=== PATIENT | male | born 1950 | race Caucasian/White ===

== ENCOUNTER 2017-08-13 17:46 | Inpatient (IN) | payer OTHER, MEDICARE ==
[2017-08-13] MEDS: methylPREDNISolone INJ 125 MG/2 ML VIAL (J2930) IV (18:02)
[2017-08-13] MEDS: LORazepam 2 MG/ML VIAL (J2060) IV (18:03)
[2017-08-13] MEDS: IPRATROPIUM 0.5MG/ALBUTEROL 2.5MG INH SOL UD 3ML (DUONEB)(J7620) NEB (18:18)
[2017-08-13 18:25] LABS: ABG BASE EXCESS -1.2 (-2.0-2.0); ABG HCO3 22.3 MEQ/L (22.0-26.0); ABG PARTIAL PRESSURE CO2 34.1 mmHg (35.0-45.0); ABG PARTIAL PRESSURE O2 96.7 mmHg (75.0-100.0); ABG STANDARD HCO3 23.5 MEQ/L (22.0-26.0); ABG TOTAL CO2 23.3 MEQ/L (23.0-31.0); ABG pH (ARTERIAL) 7.433 UNITS (7.350-7.450)
[2017-08-13 18:31] LABS: BASO % 0.4 % (0.0-1.0); IMMATURE GRANULOCYTE % 0.4 % (0-0); LYMPH # 1.2 10^3/uL (1.5-4.5); LYMPH % 14.6 % (24.0-44.0); MEAN CORPUSCULAR HEMOGLOBIN 30.2 pg (27.0-33.0); MEAN CORPUSCULAR HGB CONC 33.4 g/dl (32.0-36.5); MEAN CORPUSCULAR VOLUME 90.3 fl (80.0-96.0); MONO # 1.3 10^3/uL (0.0-0.8); MONO % 15.7 % (0.0-5.0); NEUTROPHILS # 5.9 10^3/uL (1.8-7.7); NEUTROPHILS % 68.9 % (36.0-66.0); PLATELET COUNT, AUTOMATED 234 10^3/uL (150-450); RED CELL DISTRIBUTION WIDTH 12.9 % (11.5-14.5); WHITE BLOOD COUNT 8.5 10^3/uL (4.0-10.0)
[2017-08-13 18:51] LABS: INR 0.94
[2017-08-13 18:54] LABS: LACTIC ACID SEPSIS PROTOCOL 1.9 MMOL/L (0.4-2.0)
[2017-08-13 18:55] LABS: ANION GAP 9 MEQ/L (8-16); CALCIUM LEVEL 8.4 MG/DL (8.8-10.2); CARBON DIOXIDE LEVEL 25 MEQ/L (21-32); CHLORIDE LEVEL 102 MEQ/L (98-107); CREATININE FOR GFR 1.15 MG/DL (0.70-1.30); GLOMERULAR FILTRATION RATE > 60.0 (>49); GLUCOSE, FASTING 95 MG/DL (80-110); POTASSIUM SERUM 4.3 MEQ/L (3.5-5.1); SODIUM LEVEL 136 MEQ/L (136-145)
[2017-08-13 18:58] LABS: BLOOD UREA NITROGEN 17 MG/DL (7-18)
[2017-08-13 19:00] LABS: ALKALINE PHOSPHATASE 85 U/L (45-117); ALT/SGPT 28 U/L (12-78); AST/SGOT 24 U/L (7-37); BILIRUBIN,DIRECT 0.1 MG/DL (0.0-0.2); BILIRUBIN,TOTAL 0.5 MG/DL (0.2-1.0)
[2017-08-13] MEDS ORDERED: ISOVUE-370 76% 100ML VIAL (Q9967) As Ordered (19:32)
[2017-08-13] MEDS: AZITHROMYCIN 250 MG TAB PO (21:00)
[2017-08-13] MEDS ORDERED: ONDANSETRON 4MG/2ML VIAL (J2405) IV (21:00)
[2017-08-13] MEDS: guaiFENesin ER 600 MG TAB PO (22:26)
[2017-08-13] MEDS: CEFTRIAXONE SOD 2 GM in APPROPRIATE DILUENT 1 EA IV (22:57)
[2017-08-14] MEDS: ALBUTEROL SULFATE 2.5 MG/0.5 ML INH NEB SOLN INH (02:24)
[2017-08-14] MEDS: methylPREDNISolone INJ 125 MG/2 ML VIAL (J2930) IV ×3 (02:55→17:34)
[2017-08-14 05:04] LABS: IONIZED CALCIUM 4.3 MG/DL (4.5-5.3)
[2017-08-14 05:11] LABS: MEAN CORPUSCULAR HEMOGLOBIN 30.5 pg (27.0-33.0); MEAN CORPUSCULAR HGB CONC 33.6 g/dl (32.0-36.5); MEAN CORPUSCULAR VOLUME 90.9 fl (80.0-96.0); PLATELET COUNT, AUTOMATED 224 10^3/uL (150-450); RED CELL DISTRIBUTION WIDTH 12.8 % (11.5-14.5); WHITE BLOOD COUNT 4.7 10^3/uL (4.0-10.0)
[2017-08-14 05:21] LABS: ANION GAP 8 MEQ/L (8-16); BLOOD UREA NITROGEN 23 MG/DL (7-18); CALCIUM LEVEL 8.3 MG/DL (8.8-10.2); CARBON DIOXIDE LEVEL 26 MEQ/L (21-32); CHLORIDE LEVEL 102 MEQ/L (98-107); CREATININE FOR GFR 1.21 MG/DL (0.70-1.30); GLOMERULAR FILTRATION RATE > 60.0 (>49); GLUCOSE, FASTING 175 MG/DL (80-110); POTASSIUM SERUM 4.4 MEQ/L (3.5-5.1); SODIUM LEVEL 136 MEQ/L (136-145)
[2017-08-14] MEDS: IPRATROPIUM 0.5MG/ALBUTEROL 2.5MG INH SOL UD 3ML (DUONEB)(J7620) NEB ×4 (06:39→20:22)
[2017-08-14] MEDS: guaiFENesin ER 600 MG TAB PO ×2 (08:39→21:41)
[2017-08-14] MEDS: ENOXAPARIN 40 MG/0.4 ML SYRINGE (J1650) SC (08:40)
[2017-08-14] MEDS: ACETAMINOPHEN TAB 650MG DOSE (2X325MG) PO ×3 (12:34→21:41)
[2017-08-14] MEDS: ADVAIR HFA 230/21MCG INHALER INH ×2 (13:51→21:00)
[2017-08-14] MEDS: AZITHROMYCIN 250 MG TAB PO (21:41)
[2017-08-14] MEDS: BENZONATATE 100 MG CAP PO (22:30)
[2017-08-15] MEDS: methylPREDNISolone INJ 125 MG/2 ML VIAL (J2930) IV ×3 (03:31→17:31)
[2017-08-15] MEDS: ACETAMINOPHEN TAB 650MG DOSE (2X325MG) PO ×3 (03:31→17:31)
[2017-08-15 04:56] LABS: MEAN CORPUSCULAR HEMOGLOBIN 30.3 pg (27.0-33.0); MEAN CORPUSCULAR HGB CONC 33.2 g/dl (32.0-36.5); MEAN CORPUSCULAR VOLUME 91.3 fl (80.0-96.0); PLATELET COUNT, AUTOMATED 224 10^3/uL (150-450); RED CELL DISTRIBUTION WIDTH 12.8 % (11.5-14.5); WHITE BLOOD COUNT 11.3 10^3/uL (4.0-10.0)
[2017-08-15 05:13] LABS: ANION GAP 5 MEQ/L (8-16); BLOOD UREA NITROGEN 25 MG/DL (7-18); CALCIUM LEVEL 8.4 MG/DL (8.8-10.2); CARBON DIOXIDE LEVEL 28 MEQ/L (21-32); CHLORIDE LEVEL 105 MEQ/L (98-107); CREATININE FOR GFR 0.95 MG/DL (0.70-1.30); GLOMERULAR FILTRATION RATE > 60.0 (>49); GLUCOSE, FASTING 145 MG/DL (80-110); POTASSIUM SERUM 4.2 MEQ/L (3.5-5.1); SODIUM LEVEL 138 MEQ/L (136-145)
[2017-08-15] MEDS: IPRATROPIUM 0.5MG/ALBUTEROL 2.5MG INH SOL UD 3ML (DUONEB)(J7620) NEB ×4 (07:23→20:00)
[2017-08-15] MEDS: ADVAIR HFA 230/21MCG INHALER INH ×2 (07:23→20:14)
[2017-08-15] MEDS: guaiFENesin ER 600 MG TAB PO ×2 (08:06→20:16)
[2017-08-15] MEDS: ENOXAPARIN 40 MG/0.4 ML SYRINGE (J1650) SC (08:07)
[2017-08-15] MEDS: BENZONATATE 100 MG CAP PO (09:43)
[2017-08-15] MEDS: ALPRAZolam 0.25 MG TAB PO ×2 (13:55→20:16)
[2017-08-15] MEDS: TIOTROPIUM INHALER/CAPSULE (SPIRIVA) INH (15:12)
[2017-08-15] MEDS: AZITHROMYCIN 250 MG TAB PO (20:16)
[2017-08-16] MEDS: IPRATROPIUM 0.5MG/ALBUTEROL 2.5MG INH SOL UD 3ML (DUONEB)(J7620) NEB ×6 (02:19→20:00)
[2017-08-16] MEDS: methylPREDNISolone INJ 125 MG/2 ML VIAL (J2930) IV ×3 (02:47→17:36)
[2017-08-16 04:14] LABS: MEAN CORPUSCULAR HEMOGLOBIN 30.7 pg (27.0-33.0); MEAN CORPUSCULAR HGB CONC 33.9 g/dl (32.0-36.5); MEAN CORPUSCULAR VOLUME 90.6 fl (80.0-96.0); PLATELET COUNT, AUTOMATED 230 10^3/uL (150-450)
[2017-08-16 04:32] LABS: ANION GAP 7 MEQ/L (8-16); BLOOD UREA NITROGEN 25 MG/DL (7-18); CALCIUM LEVEL 8.4 MG/DL (8.8-10.2); CARBON DIOXIDE LEVEL 27 MEQ/L (21-32); CHLORIDE LEVEL 102 MEQ/L (98-107); CREATININE FOR GFR 0.96 MG/DL (0.70-1.30); GLOMERULAR FILTRATION RATE > 60.0 (>49); GLUCOSE, FASTING 131 MG/DL (80-110); POTASSIUM SERUM 4.1 MEQ/L (3.5-5.1); SODIUM LEVEL 136 MEQ/L (136-145)
[2017-08-16] MEDS: TIOTROPIUM INHALER/CAPSULE (SPIRIVA) INH (07:23)
[2017-08-16] MEDS: ADVAIR HFA 230/21MCG INHALER INH ×2 (07:23→20:35)
[2017-08-16] MEDS: ENOXAPARIN 40 MG/0.4 ML SYRINGE (J1650) SC (08:32)
[2017-08-16] MEDS: guaiFENesin ER 600 MG TAB PO ×2 (08:32→21:24)
[2017-08-16] MEDS: ALPRAZolam 0.25 MG TAB PO ×2 (08:32→21:23)
[2017-08-16] MEDS: BENZONATATE 100 MG CAP PO (17:36)
[2017-08-16] MEDS: AZITHROMYCIN 250 MG TAB PO (21:22)
[2017-08-17] MEDS: methylPREDNISolone INJ 125 MG/2 ML VIAL (J2930) IV ×3 (03:10→17:53)
[2017-08-17] MEDS: BENZONATATE 100 MG CAP PO ×3 (03:32→22:53)
[2017-08-17 05:13] LABS: MEAN CORPUSCULAR HEMOGLOBIN 30.4 pg (27.0-33.0); MEAN CORPUSCULAR HGB CONC 33.5 g/dl (32.0-36.5); MEAN CORPUSCULAR VOLUME 90.7 fl (80.0-96.0); PLATELET COUNT, AUTOMATED 242 10^3/uL (150-450); RED CELL DISTRIBUTION WIDTH 12.7 % (11.5-14.5); WHITE BLOOD COUNT 12.3 10^3/uL (4.0-10.0)
[2017-08-17 05:33] LABS: ANION GAP 4 MEQ/L (8-16); BLOOD UREA NITROGEN 23 MG/DL (7-18); CALCIUM LEVEL 8.4 MG/DL (8.8-10.2); CARBON DIOXIDE LEVEL 30 MEQ/L (21-32); CHLORIDE LEVEL 104 MEQ/L (98-107); CREATININE FOR GFR 0.82 MG/DL (0.70-1.30); GLOMERULAR FILTRATION RATE > 60.0 (>49); GLUCOSE, FASTING 127 MG/DL (80-110); POTASSIUM SERUM 4.5 MEQ/L (3.5-5.1); SODIUM LEVEL 138 MEQ/L (136-145)
[2017-08-17] MEDS: ADVAIR HFA 230/21MCG INHALER INH ×2 (07:33→21:18)
[2017-08-17] MEDS: IPRATROPIUM 0.5MG/ALBUTEROL 2.5MG INH SOL UD 3ML (DUONEB)(J7620) NEB ×4 (07:35→21:18)
[2017-08-17] MEDS: TIOTROPIUM INHALER/CAPSULE (SPIRIVA) INH (07:35)
[2017-08-17] MEDS: ENOXAPARIN 40 MG/0.4 ML SYRINGE (J1650) SC (09:12)
[2017-08-17] MEDS: guaiFENesin ER 600 MG TAB PO ×2 (09:12→20:18)
[2017-08-17] MEDS: ALPRAZolam 0.25 MG TAB PO (11:41)
[2017-08-17] MEDS: DOXYCYCLINE HYCLATE 100 MG in D5W MINI-BAG PLUS 100 ML IV (16:52)
[2017-08-18] MEDS: ALPRAZolam 0.25 MG TAB PO ×3 (00:32→20:09)
[2017-08-18] MEDS: DOXYCYCLINE HYCLATE 100 MG in D5W MINI-BAG PLUS 100 ML IV ×2 (04:21→15:32)
[2017-08-18 05:42] LABS: MEAN CORPUSCULAR HEMOGLOBIN 30.4 pg (27.0-33.0); MEAN CORPUSCULAR HGB CONC 33.3 g/dl (32.0-36.5); MEAN CORPUSCULAR VOLUME 91.3 fl (80.0-96.0); PLATELET COUNT, AUTOMATED 232 10^3/uL (150-450); RED CELL DISTRIBUTION WIDTH 12.7 % (11.5-14.5); WHITE BLOOD COUNT 11.7 10^3/uL (4.0-10.0)
[2017-08-18 06:02] LABS: ANION GAP 6 MEQ/L (8-16); BLOOD UREA NITROGEN 25 MG/DL (7-18); CARBON DIOXIDE LEVEL 28 MEQ/L (21-32); CHLORIDE LEVEL 103 MEQ/L (98-107); CREATININE FOR GFR 0.93 MG/DL (0.70-1.30); GLOMERULAR FILTRATION RATE > 60.0 (>49); GLUCOSE, FASTING 128 MG/DL (80-110); POTASSIUM SERUM 4.2 MEQ/L (3.5-5.1); SODIUM LEVEL 137 MEQ/L (136-145)
[2017-08-18] MEDS: methylPREDNISolone INJ 40 MG/1 ML VIAL (J2920) IV ×2 (06:08→18:44)
[2017-08-18] MEDS: IPRATROPIUM 0.5MG/ALBUTEROL 2.5MG INH SOL UD 3ML (DUONEB)(J7620) NEB ×4 (07:55→20:43)
[2017-08-18] MEDS: TIOTROPIUM INHALER/CAPSULE (SPIRIVA) INH (07:55)
[2017-08-18] MEDS: ADVAIR HFA 230/21MCG INHALER INH ×2 (07:55→20:43)
[2017-08-18] MEDS: BENZONATATE 100 MG CAP PO ×2 (08:19→20:09)
[2017-08-18] MEDS: ENOXAPARIN 40 MG/0.4 ML SYRINGE (J1650) SC (08:19)
[2017-08-18] MEDS: guaiFENesin ER 600 MG TAB PO ×2 (08:19→20:09)
[2017-08-19] MEDS: IPRATROPIUM 0.5MG/ALBUTEROL 2.5MG INH SOL UD 3ML (DUONEB)(J7620) NEB ×5 (01:41→19:55)
[2017-08-19] MEDS: DOXYCYCLINE HYCLATE 100 MG in D5W MINI-BAG PLUS 100 ML IV ×2 (03:27→15:01)
[2017-08-19] MEDS: methylPREDNISolone INJ 40 MG/1 ML VIAL (J2920) IV (05:40)
[2017-08-19 07:11] LABS: MEAN CORPUSCULAR HEMOGLOBIN 30.1 pg (27.0-33.0); MEAN CORPUSCULAR HGB CONC 33.8 g/dl (32.0-36.5); PLATELET COUNT, AUTOMATED 247 10^3/uL (150-450); RED CELL DISTRIBUTION WIDTH 12.3 % (11.5-14.5); WHITE BLOOD COUNT 14.6 10^3/uL (4.0-10.0)
[2017-08-19] MEDS: TIOTROPIUM INHALER/CAPSULE (SPIRIVA) INH (07:20)
[2017-08-19] MEDS: ADVAIR HFA 230/21MCG INHALER INH ×2 (07:20→19:57)
[2017-08-19 07:26] LABS: ANION GAP 7 MEQ/L (8-16); BLOOD UREA NITROGEN 21 MG/DL (7-18); CARBON DIOXIDE LEVEL 30 MEQ/L (21-32); CHLORIDE LEVEL 103 MEQ/L (98-107); CREATININE FOR GFR 0.83 MG/DL (0.70-1.30); GLOMERULAR FILTRATION RATE > 60.0 (>49); GLUCOSE, FASTING 106 MG/DL (80-110); POTASSIUM SERUM 4.3 MEQ/L (3.5-5.1); SODIUM LEVEL 140 MEQ/L (136-145)
[2017-08-19] MEDS: BENZONATATE 100 MG CAP PO ×2 (08:45→19:32)
[2017-08-19] MEDS: ALPRAZolam 0.25 MG TAB PO ×2 (08:45→19:32)
[2017-08-19] MEDS: predniSONE 20 MG TAB PO (08:46)
[2017-08-19] MEDS: guaiFENesin ER 600 MG TAB PO ×2 (08:46→20:46)
[2017-08-19] MEDS: ENOXAPARIN 40 MG/0.4 ML SYRINGE (J1650) SC (08:46)
[2017-08-20] MEDS: DOXYCYCLINE HYCLATE 100 MG in D5W MINI-BAG PLUS 100 ML IV (03:09)
[2017-08-20] MEDS: IPRATROPIUM 0.5MG/ALBUTEROL 2.5MG INH SOL UD 3ML (DUONEB)(J7620) NEB ×2 (03:20→07:51)
[2017-08-20 07:27] LABS: MEAN CORPUSCULAR HEMOGLOBIN 30.4 pg (27.0-33.0); MEAN CORPUSCULAR VOLUME 89.4 fl (80.0-96.0); PLATELET COUNT, AUTOMATED 292 10^3/uL (150-450); RED CELL DISTRIBUTION WIDTH 12.6 % (11.5-14.5); WHITE BLOOD COUNT 18.9 10^3/uL (4.0-10.0)
[2017-08-20 07:40] LABS: ANION GAP 6 MEQ/L (8-16); BLOOD UREA NITROGEN 21 MG/DL (7-18); CALCIUM LEVEL 8.6 MG/DL (8.8-10.2); CARBON DIOXIDE LEVEL 31 MEQ/L (21-32); CHLORIDE LEVEL 101 MEQ/L (98-107); CREATININE FOR GFR 0.96 MG/DL (0.70-1.30); GLOMERULAR FILTRATION RATE > 60.0 (>49); GLUCOSE, FASTING 113 MG/DL (80-110); POTASSIUM SERUM 3.6 MEQ/L (3.5-5.1); SODIUM LEVEL 138 MEQ/L (136-145)
[2017-08-20] MEDS: ADVAIR HFA 230/21MCG INHALER INH (07:50)
[2017-08-20] MEDS: TIOTROPIUM INHALER/CAPSULE (SPIRIVA) INH (07:50)
[2017-08-20] MEDS: ALPRAZolam 0.25 MG TAB PO (08:36)
[2017-08-20] MEDS: BENZONATATE 100 MG CAP PO (08:36)
[2017-08-20] MEDS: ENOXAPARIN 40 MG/0.4 ML SYRINGE (J1650) SC (08:36)
[2017-08-20] MEDS: predniSONE 20 MG TAB PO (08:36)
[2017-08-20] MEDS: guaiFENesin ER 600 MG TAB PO (08:36)
== END 2017-08-20 11:48 | disposition home or self-care (01) | DRG 192 ==
LOC: M MS4PR 08-18 21:20 → M ED 17:46 → M ED INP 20:57 → M PCU 22:08
DX: J44.1 Chronic obstructive pulmonary disease with (acute) exacerbation (principal); J11.1 Influenza due to unidentified influenza virus with other respiratory manifestations; E78.00 Pure hypercholesterolemia, unspecified; F41.9 Anxiety disorder, unspecified; E83.51 Hypocalcemia; M50.30 Other cervical disc degeneration, unspecified cervical region; I10 Essential (primary) hypertension; R09.02 Hypoxemia; Z98.1 Arthrodesis status; Z87.891 Personal history of nicotine dependence; Z79.899 Other long term (current) drug therapy; B95.61 Methicillin susceptible Staphylococcus aureus infection as the cause of diseases classified elsewhere

== ENCOUNTER → 2018-12-05 | Outpatient (CLI) | payer OTHER ==
[~2018-12-05] MED LIST: ALEV220T26 PO; COMBAER6 INH; CYCL5TAB5 PO; DOCU10CA PO; DOXY-350 PO; HYDR-3713 PO; MUCI1TAB18 PO; MUCI600T37 PO; NAPR220C PO; PERC5TAB12 PO; PRED10TA2 PO; SYMB16INH INH; SYMB80INH INH; TIOT18INH INH; ZOCO20TA PO
--- NOTE | 2018-12-06 06:50 | ECHO ---
DATE OF PROCEDURE: 12/05/2018 DATE OF : 1950 AGE: 68 REFERRING PROVIDER: Dr. Charan Miller PATIENT LOCATION: Outpatient REASON FOR THE ECHOCARDIOGRAM: Heart disease, shortness of breath. 2D MEASUREMENTS: IVS: 0.92 cm LV: 3.5 cm LVPW: 0.97 cm LA: 2.7 cm Aorta: 3.0 cm IVC: 1.2 cm DOPPLER MEASUREMENTS: Peak velocity across the aortic valve: 0.99 m/s Peak velocity across the LVOT: 0.75 m/s Mitral E: 0.85 Mitral A: 1.1 Ratio: 0.8 2D COMMENTS: 1. Normal left ventricular size, wall thickness, and normal global left ventricular systolic function. The estimated global left ventricular systolic ejection fraction is 60-65%. 2. Normal left atrium. Normal right atrium and right ventricle. 3. The atrial septum appeared to be normal without evidence of defect or shunt. 4. Normal aortic root. 5. Trace pericardial effusion noted anteriorly versus a fat pad. There is no evidence of cardiac tamponade. 6. Mildly calcified aortic valve with normal leaflet excursion. Mildly calcified mitral annulus with normal anterior mitral valve leaflet motion. Normal tricuspid valve. The pulmonic valve was not well visualized. The proximal pulmonary artery branches were not visualized. 7. The inferior vena cava was normal in size, central venous pressure is most likely normal. DOPPLER: Only trace mitral regurgitation detected. Abnormal relaxation pattern was noted across the mitral valve leaflets as well as the mitral valve annulus consistent with delayed relaxation. IMPRESSION: 1. Normal global left ventricular systolic function. There are some features of left ventricular diastolic dysfunction manifested by impaired relaxation. 2. Aortic valve sclerosis without stenosis or aortic regurgitation. 3. Mitral annulus calcification with trace mitral regurgitation. 4. Trace pericardial effusion versus a fat pad was noted anteriorly. No evidence of cardiac tamponade. Not mentioned above, there were some features consistent with right ventricular hypertrophy. Right ventricular systolic function was normal.
== END ==
LOC: M CARPUL 09:50
PROVIDERS: ATTEND Internal Medicine
DX: I25.10 Atherosclerotic heart disease of native coronary artery without angina pectoris (principal)

== ENCOUNTER 2020-07-17 15:19 | Inpatient (IN) | payer OTHER, MEDICARE ==
[~2020-07-17] VITALS: Ht 165.1 cm; Wt 74.7 kg
[2020-07-17] MEDS ORDERED: ROSU40TA4 PO ×2 (15:40→23:35)
[2020-07-17] MEDS ORDERED: ACET-683 PO (15:40)
[2020-07-17] MEDS ORDERED: FERR325T16 PO (15:43)
[2020-07-17] MEDS ORDERED: IPRA0.00 NEB (15:43)
[2020-07-17] MEDS ORDERED: MULTCAP PO (15:43)
[2020-07-17] MEDS ORDERED: DALI1TAB2 PO ×2 (15:43→23:35)
[2020-07-17] MEDS ORDERED: BUSP5TA PO ×2 (15:43→23:35)
--- NOTE | 2020-07-17 16:13 | REP ---
INDICATION: Syncope/near-syncope COMPARISON: 08/16/2017 TECHNIQUE: Portable AP view of the chest FINDINGS: The mediastinum and cardiac silhouette are stable and within normal limits for portable technique. The lung roman demonstrate chronic appearing changes without acute consolidation, effusion, or pneumothorax. Skeletal structures are intact. IMPRESSION: No acute cardiopulmonary process appreciated. Stable chronic changes. <Electronically signed by Ronald Benoit > 07/17/20 [id number]
[2020-07-17 16:32] LABS: BASO % 0.5 % (0.0-1.0); EOS % 0.3 % (0.0-3.0); HEMATOCRIT 41.6 % (42.0-52.0); HEMOGLOBIN 13.7 g/dl (13.5-17.5); LYMPH # 1.3 10^3/uL (1.5-5.0); LYMPH % 14.9 % (24.0-44.0); MEAN CORPUSCULAR HEMOGLOBIN 30.7 pg (27.0-33.0); MEAN CORPUSCULAR HGB CONC 32.9 g/dl (32.0-36.5); MEAN CORPUSCULAR VOLUME 93.3 fl (80.0-96.0); MONO # 0.8 10^3/uL (0.0-0.8); MONO % 8.7 % (0.0-5.0); NEUTROPHILS # 6.7 10^3/uL (1.5-8.5); NEUTROPHILS % 75.3 % (36.0-66.0); PLATELET COUNT, AUTOMATED 258 10^3/uL (150-450); RED BLOOD COUNT 4.46 10^6/uL (4.30-6.10); WHITE BLOOD COUNT 8.9 10^3/uL (4.0-10.0)
[2020-07-17 17:18] LABS: BLOOD UREA NITROGEN 13 MG/DL (7-18); C REACTIVE PROTEIN QUANTITATIV 0.49 MG/DL (0.00-0.30); CALCIUM LEVEL 9.3 MG/DL (8.8-10.2); CARBON DIOXIDE LEVEL 26 MEQ/L (21-32); CHLORIDE LEVEL 105 MEQ/L (98-107); CK-MB VALUE MASS 1.4 NG/ML (<3.6); CPK CREATINE PHOSPHOKINASE 112 U/L (39-308); CREATININE FOR GFR 1.13 MG/DL (0.70-1.30); GLOMERULAR FILTRATION RATE > 60.0 (>49); GLUCOSE, FASTING 97 MG/DL (70-100); MB/CK RELATIVE INDEX 1.25 (< OR =4); POTASSIUM SERUM 4.4 MEQ/L (3.5-5.1); SODIUM LEVEL 138 MEQ/L (136-145); THYROID STIMULATING HORMONE 0.675 uIU/ML (0.358-3.740); TROPONIN I < 0.02 NG/ML (< 0.10)
[2020-07-17 19:57] LABS: CK-MB VALUE MASS 1.5 NG/ML (<3.6); CPK CREATINE PHOSPHOKINASE 157 U/L (39-308); MB/CK RELATIVE INDEX 0.96 (< OR =4); TROPONIN I < 0.02 NG/ML (< 0.10)
[2020-07-17] MEDS ORDERED: PROHANCE 279.3MG/ML 15ML VIAL As Ordered ONE (20:45)
--- NOTE | 2020-07-17 21:12 | REPVR ---
PROCEDURE INFORMATION: Exam: MR Lumbar Spine Without and With Contrast. Exam date and time: 07/17/2020 9:02 PM Age: 69 years old Clinical indication: Pain; Other: ? Discitis TECHNIQUE: Imaging protocol: Multiplanar magnetic resonance images of the lumbar spine without and with intravenous contrast. Contrast material: PROHANCE; Contrast volume: 14 ml; Contrast route: INTRAVENOUS (IV); COMPARISON: No relevant prior studies available. FINDINGS: Vertebrae: T1 weighted images demonstrate mottled decreased signal throughout the vertebrae, findings which can be seen in association with chronic anemia or other myeloproliferative abnormality. This should be correlated with clinical evaluation. Spinal cord: Normal signal. No cord compression. L1-L2: Disc space narrowing at L1-L2 with slight increased signal demonstrated on T1 weighted images, disc desiccation with decreased signal on T2 weighted imaging and minimal enhancement on post gadolinium imaging. Findings are consistent with but not diagnostic of discitis. L2-L3: No significant disc disease. No significant spinal canal stenosis. No neural foraminal stenosis. L3-L4: Mild annular bulge at L3-L4 without central or lateral spinal stenosis. L4-L5: Bilateral facet joint arthropathy at L4-L5. No central or lateral spinal stenosis. L5-S1: Posterior annular bulging. Bilateral facet joint arthropathy L5-S1 without central or lateral spinal stenosis. Soft tissues: Unremarkable. IMPRESSION: 1. T1 weighted images demonstrate mottled decreased signal throughout the vertebrae, findings which can be seen in association with chronic anemia or other myeloproliferative abnormality. This should be correlated with clinical evaluation. 2. Possible discitis at L1-L2 as described above. 3. Mild degenerative changes as described above. Electronically signed by: Librado Pond On 07/17/2020 21:12:21 PM
[2020-07-17] MEDS ORDERED: MOM 30ML SUSPENSION UDC PO PRN (23:00)
[2020-07-17] MEDS ORDERED: MAALOX 30 ML SUSP *UDC PO PRN (23:00)
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
[2020-07-17] MEDS ORDERED: CYCL-707 PO (23:35)
[2020-07-17] MEDS ORDERED: FERR32TA PO (23:35)
[2020-07-17] MEDS ORDERED: GUAI400T9 PO (23:35)
[2020-07-17] MEDS ORDERED: IPRA0.00 INH (23:35)
[2020-07-17] MEDS ORDERED: VITMTA PO (23:35)
[2020-07-17] MEDS ORDERED: PROAAER10 INH (23:35)
[2020-07-17] MEDS ORDERED: SYMB16INH INH (23:35)
[2020-07-17] MEDS ORDERED: TRAM50TA2 PO (23:35)
[2020-07-17] MEDS ORDERED: SPIR12.9 INH (23:35)
[2020-07-17] MEDS ORDERED: [UNRECOGNIZED DRUG - CODE] EXT (23:35)
[2020-07-18] MEDS ORDERED: ALBUTEROL 90 MCG/ACT 8GM HFA INHALER INH PRN (00:45)
[2020-07-18] MEDS: IPRATROPIUM 0.5MG/ALBUTEROL 2.5MG INH SOL UD 3ML (DUONEB) INH PRN ×5 (01:44→23:14)
[2020-07-18 02:00] VITALS: BP 161/93
[2020-07-18 02:02] VITALS: BP 142/76
[2020-07-18 02:04] VITALS: BP 129/79
[2020-07-18 06:00] VITALS: BP 157/84
[2020-07-18 07:13] LABS: HEMATOCRIT 44.5 % (42.0-52.0); HEMOGLOBIN 14.3 g/dl (13.5-17.5); MEAN CORPUSCULAR HEMOGLOBIN 30.4 pg (27.0-33.0); MEAN CORPUSCULAR HGB CONC 32.1 g/dl (32.0-36.5); MEAN CORPUSCULAR VOLUME 94.7 fl (80.0-96.0); PLATELET COUNT, AUTOMATED 271 10^3/uL (150-450); WHITE BLOOD COUNT 16.4 10^3/uL (4.0-10.0)
[2020-07-18 07:29] LABS: BLOOD UREA NITROGEN 14 MG/DL (7-18); CARBON DIOXIDE LEVEL 25 MEQ/L (21-32); CHLORIDE LEVEL 105 MEQ/L (98-107); CREATININE FOR GFR 1.13 MG/DL (0.70-1.30); GLOMERULAR FILTRATION RATE > 60.0 (>49); GLUCOSE, FASTING 88 MG/DL (70-100); POTASSIUM SERUM 4.2 MEQ/L (3.5-5.1); SODIUM LEVEL 140 MEQ/L (136-145)
--- NOTE | 2020-07-18 07:34 | ECGEPIP ---
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
--- NOTE | 2020-07-18 07:38 | ECGEPIP ---
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
[2020-07-18] MEDS: SYMBICORT 160/4.5MCG INHALER 6GM INH SCH ×2 (08:00→19:24)
[2020-07-18] MEDS: TIOTROPIUM INHALER/CAPSULE (SPIRIVA) INH SCH (08:00)
[2020-07-18] MEDS ORDERED: cefTRIAXone SOD 1 GM in D5W MINI-BAG PLUS 50 ML IV SCH (08:00)
[2020-07-18] MEDS ORDERED: VANCOMYCIN HCL 1,000 MG, VIAL MATE ADAPTER 1 EACH in D5W 250 ML IV SCH (08:00)
[2020-07-18 08:31] LABS: ERYTHROCYTE SEDIMENTATION RATE 28 mm/hr (0-20)
[2020-07-18] MEDS: FERROUS GLUCONATE 324 MG TAB PO SCH ×2 (09:43→17:31)
[2020-07-18] MEDS: MULTIVITAMINS/MINERALS THERAP 1 TAB PO SCH ×2 (09:43→17:31)
[2020-07-18] MEDS: cefTRIAXone SOD 2 GM in D5W MINI-BAG PLUS 50 ML IV SCH (09:44)
[2020-07-18] MEDS ORDERED: VANCOMYCIN HCL 1,000 MG, VIAL MATE ADAPTER 1 EACH in D5W 250 ML IV ONE (11:00)
[2020-07-18] MEDS: CYCLOBENZAPRINE 10MG TABLET PO PRN ×2 (11:47→20:05)
--- NOTE | 2020-07-18 11:47 | IPNPDOC ---
Text Note Date of Service The patient was seen on 07/18/20. NOTE Subjective: Patient continues to complain on the lower lumbar pain associated with bilateral leg weakness. Patient denied any urinary retention or fecal incontinence Objective: GENERAL APPEARANCE: NAD HEENT: no scleral icterus, no JVD, EOMI CARDIOVASCULAR: S1S2 LUNGS: CTA ABDOMEN: soft & not tender w palpitation MUSCULOSKELETAL: Tenderness over L1-L2, L4-L5 INTEGUMENT: no generalized palor NEUROLOGICAL: cranial nerve function from 2-12 intact intact, follows commands, speech not dysarthric Assessment and plan Patient is a 69-year-old with a history of COPD, O2-dependent respiratory failure, pre-DM, DLP,, and chronic back pain who presented with complaints of feeling weak and dizzy; MRI of the lumbar spine showed possible discitis. Sepsis Patient has tachycardia, he developed leukocytosis in the morning of 16.4 with increased sedimentation rate of 28 MRI showed Possible discitis at L1-L2 I started vancomycin IV and ceftriaxone IV empirically Await blood culture Appreciate/agree with infectious diseases consult Possible discitis Patient denied any infectious problem process recently Continue antibiotics for now Pain management COPD Oxygen dependent on 2 L Continue inhalers Hyperlipidemia Continue statin VS,Fishbone, I+O VS, Fishbone, I+O Laboratory Tests 07/17/20 16:02 07/18/20 06:41 Vital Signs Date Time Temp Pulse Resp B/P (MAP) Pulse Ox O2 Delivery O2 Flow Rate FiO2 07/18/20 06:00 98.9 110 20 157/84 (108) 95 Nasal Cannula 2.0 I&O- Last 24 Hours up to 6 AM 07/18/20 06:00 Output Total 650 ml Balance -650 ml MARIA LUISA KEARNS DO Jul 18, 2020 11:47
[2020-07-18] MEDS ORDERED: VANCOMYCIN HCL 500 MG in D5W MINI-BAG PLUS 100 ML IV ONE (13:00)
[2020-07-18 14:00] VITALS: BP 130/79
[2020-07-18] MEDS: busPIRone 5 MG TAB PO PRN ×2 (16:10→20:05)
[2020-07-18] MEDS: ROFLUMILAST 500 MCG PO SCH (16:10)
[2020-07-18] MEDS: ROSUVASTATIN 10 MG TAB (CRESTOR) PO SCH (17:31)
[2020-07-18] MEDS: VANCOMYCIN HCL 750 MG, VIAL MATE ADAPTER 1 EACH in D5W 250 ML IV SCH (17:32)
[2020-07-18] MEDS: ACETAMINOPHEN TAB 650MG DOSE (2X325MG) PO PRN ×2 (17:47→23:24)
[2020-07-18] MEDS: traMADol 50 MG TAB PO PRN (20:05)
[2020-07-18 22:37] VITALS: BP 132/80
[2020-07-19 02:00] VITALS: BP 127/72
[2020-07-19] MEDS: IPRATROPIUM 0.5MG/ALBUTEROL 2.5MG INH SOL UD 3ML (DUONEB) INH PRN ×5 (03:51→23:44)
[2020-07-19] MEDS: ACETAMINOPHEN TAB 650MG DOSE (2X325MG) PO PRN ×2 (04:08→21:24)
[2020-07-19] MEDS: VANCOMYCIN HCL 750 MG, VIAL MATE ADAPTER 1 EACH in D5W 250 ML IV SCH (05:09)
[2020-07-19 06:00] VITALS: BP 125/72
[2020-07-19 07:10] LABS: BASO % 0.4 % (0.0-1.0); EOS # 0.1 10^3/uL (0.0-0.5); EOS % 0.5 % (0.0-3.0); HEMATOCRIT 40.6 % (42.0-52.0); HEMOGLOBIN 12.9 g/dl (13.5-17.5); LYMPH # 1.4 10^3/uL (1.5-5.0); LYMPH % 13.8 % (24.0-44.0); MEAN CORPUSCULAR HEMOGLOBIN 30.1 pg (27.0-33.0); MEAN CORPUSCULAR HGB CONC 31.8 g/dl (32.0-36.5); MEAN CORPUSCULAR VOLUME 94.9 fl (80.0-96.0); MONO # 1.3 10^3/uL (0.0-0.8); MONO % 12.3 % (0.0-5.0); NEUTROPHILS # 7.5 10^3/uL (1.5-8.5); NEUTROPHILS % 72.6 % (36.0-66.0); PLATELET COUNT, AUTOMATED 236 10^3/uL (150-450); RED BLOOD COUNT 4.28 10^6/uL (4.30-6.10); WHITE BLOOD COUNT 10.3 10^3/uL (4.0-10.0)
[2020-07-19] MEDS: TIOTROPIUM INHALER/CAPSULE (SPIRIVA) INH SCH (07:12)
[2020-07-19] MEDS: SYMBICORT 160/4.5MCG INHALER 6GM INH SCH ×2 (07:13→20:11)
[2020-07-19 07:38] LABS: ALBUMIN 3.8 GM/DL (3.2-5.2); ALT/SGPT 29 U/L (12-78); BILIRUBIN,TOTAL 0.5 MG/DL (0.2-1.0); BLOOD UREA NITROGEN 14 MG/DL (7-18); CALCIUM LEVEL 9.2 MG/DL (8.8-10.2); CARBON DIOXIDE LEVEL 30 MEQ/L (21-32); CHLORIDE LEVEL 102 MEQ/L (98-107); CREATININE FOR GFR 1.12 MG/DL (0.70-1.30); GLOMERULAR FILTRATION RATE > 60.0 (>49); GLUCOSE, FASTING 138 MG/DL (70-100); MAGNESIUM LEVEL 2.1 MG/DL (1.8-2.4); POTASSIUM SERUM 3.9 MEQ/L (3.5-5.1); SODIUM LEVEL 137 MEQ/L (136-145); TOTAL PROTEIN 7.2 GM/DL (6.4-8.2)
[2020-07-19] MEDS: busPIRone 5 MG TAB PO PRN ×2 (08:56→21:23)
[2020-07-19] MEDS: MULTIVITAMINS/MINERALS THERAP 1 TAB PO SCH ×2 (08:56→17:58)
[2020-07-19] MEDS: CYCLOBENZAPRINE 10MG TABLET PO PRN ×2 (08:56→21:23)
[2020-07-19] MEDS: FERROUS GLUCONATE 324 MG TAB PO SCH ×2 (08:56→17:58)
[2020-07-19] MEDS: ROFLUMILAST 500 MCG PO SCH (08:57)
[2020-07-19] MEDS: cefTRIAXone SOD 2 GM in D5W MINI-BAG PLUS 50 ML IV SCH (08:58)
[2020-07-19 10:00] VITALS: BP 123/68
--- NOTE | 2020-07-19 11:31 | IPNPDOC ---
Text Note Date of Service The patient was seen on 07/19/20. NOTE Subjective: Patient stated that he feels much better today. Back pain signif icantly subsided Objective: GENERAL APPEARANCE: NAD HEENT: no scleral icterus, no JVD, EOMI CARDIOVASCULAR: S1S2 LUNGS: CTA ABDOMEN: soft & not tender w palpitation MUSCULOSKELETAL: Mild Tenderness over L1-L2, L4-L5 INTEGUMENT: no generalized palor NEUROLOGICAL: cranial nerve function from 2-12 intact intact, follows commands, speech not dysarthric Assessment and plan Patient is a 69-year-old with a history of COPD, O2-dependent respiratory failure, pre-DM, DLP,, and chronic back pain who presented with complaints of feeling weak and dizzy; MRI of the lumbar spine showed possible discitis. Sepsis Patient has tachycardia, he developed leukocytosis in the morning of 16.4 with increased sedimentation rate of 28 MRI showed Possible discitis at L1-L2 I started vancomycin IV and ceftriaxone IV empirically blood culture negative Appreciate/agree with infectious diseases consult. No coverage today Possible discitis Patient denied any infectious problem process recently No obvious source of infection Sedimentation rate of 28 Continue antibiotics for now Pain management COPD Oxygen dependent on 2 L Continue inhalers Hyperlipidemia Continue statin VS,Fishbone, I+O VS, Fishbone, I+O Laboratory Tests 07/19/20 06:17 Vital Signs Date Time Temp Pulse Resp B/P (MAP) Pulse Ox O2 Delivery O2 Flow Rate FiO2 07/19/20 10:00 98.0 103 18 123/68 (86) 93 Nasal Cannula 2.0 I&O- Last 24 Hours up to 6 AM0 07/19/20 06:00 Intake Total 1630 ml Output Total 1500 ml Balance 130 ml MARIA LUISA KEARNS DO Jul 19, 2020 11:31
[2020-07-19] MEDS: traMADol 50 MG TAB PO PRN (12:11)
[2020-07-19 14:00] VITALS: BP 124/81
[2020-07-19] MEDS: ROSUVASTATIN 10 MG TAB (CRESTOR) PO SCH (17:57)
[2020-07-19 18:00] VITALS: BP 123/85
[2020-07-19 22:00] VITALS: BP 129/77
[2020-07-20 02:00] VITALS: BP 121/71
[2020-07-20] MEDS: IPRATROPIUM 0.5MG/ALBUTEROL 2.5MG INH SOL UD 3ML (DUONEB) INH PRN ×6 (03:46→23:51)
[2020-07-20 06:00] VITALS: BP 112/63
[2020-07-20] MEDS: traMADol 50 MG TAB PO PRN ×2 (06:27→17:03)
[2020-07-20 07:04] LABS: BASO % 0.4 % (0.0-1.0); EOS # 0.1 10^3/uL (0.0-0.5); EOS % 1.2 % (0.0-3.0); HEMATOCRIT 39.3 % (42.0-52.0); HEMOGLOBIN 12.7 g/dl (13.5-17.5); LYMPH # 1.5 10^3/uL (1.5-5.0); LYMPH % 14.7 % (24.0-44.0); MEAN CORPUSCULAR HGB CONC 32.3 g/dl (32.0-36.5); MEAN CORPUSCULAR VOLUME 92.7 fl (80.0-96.0); MONO # 1.1 10^3/uL (0.0-0.8); MONO % 11.1 % (0.0-5.0); NEUTROPHILS # 7.4 10^3/uL (1.5-8.5); NEUTROPHILS % 72.3 % (36.0-66.0); PLATELET COUNT, AUTOMATED 249 10^3/uL (150-450); RED BLOOD COUNT 4.24 10^6/uL (4.30-6.10); WHITE BLOOD COUNT 10.2 10^3/uL (4.0-10.0)
[2020-07-20 07:19] LABS: ALBUMIN 3.4 GM/DL (3.2-5.2); ALT/SGPT 29 U/L (12-78); BILIRUBIN,TOTAL 0.3 MG/DL (0.2-1.0); BLOOD UREA NITROGEN 13 MG/DL (7-18); CALCIUM LEVEL 8.8 MG/DL (8.8-10.2); CARBON DIOXIDE LEVEL 26 MEQ/L (21-32); CHLORIDE LEVEL 106 MEQ/L (98-107); CREATININE FOR GFR 1.09 MG/DL (0.70-1.30); GLOMERULAR FILTRATION RATE > 60.0 (>49); GLUCOSE, FASTING 123 MG/DL (70-100); MAGNESIUM LEVEL 2.1 MG/DL (1.8-2.4); POTASSIUM SERUM 3.8 MEQ/L (3.5-5.1); SODIUM LEVEL 139 MEQ/L (136-145); TOTAL PROTEIN 6.8 GM/DL (6.4-8.2)
[2020-07-20] MEDS: TIOTROPIUM INHALER/CAPSULE (SPIRIVA) INH SCH (07:19)
[2020-07-20] MEDS: SYMBICORT 160/4.5MCG INHALER 6GM INH SCH ×2 (07:20→19:45)
[2020-07-20] MEDS: ROFLUMILAST 500 MCG PO SCH (08:27)
[2020-07-20] MEDS: FERROUS GLUCONATE 324 MG TAB PO SCH ×2 (08:27→17:04)
[2020-07-20] MEDS: CYCLOBENZAPRINE 10MG TABLET PO PRN ×2 (08:27→17:07)
[2020-07-20] MEDS: busPIRone 5 MG TAB PO PRN ×3 (08:27→20:17)
[2020-07-20] MEDS: MULTIVITAMINS/MINERALS THERAP 1 TAB PO SCH ×2 (08:27→17:04)
--- NOTE | 2020-07-20 09:53 | IPNPDOC ---
Text Note Date of Service The patient was seen on 07/20/20. NOTE Subjective: No any acute events overnight. Patient denies fever, chills, nausea, and, diarrhea or dysuria Objective: GENERAL APPEARANCE: NAD HEENT: no scleral icterus, no JVD, EOMI CARDIOVASCULAR: S1S2 LUNGS: CTA ABDOMEN: soft & not tender w palpitation MUSCULOSKELETAL: Mild Tenderness over L1-L2, L4-L5 INTEGUMENT: no generalized palor NEUROLOGICAL: cranial nerve function from 2-12 intact intact, follows commands, speech not dysarthric Assessment and plan Patient is a 69-year-old with a history of COPD, O2-dependent respiratory failure, pre-DM, DLP,, and chronic back pain who presented with complaints of feeling weak and dizzy; MRI of the lumbar spine showed possible discitis. Sepsis resolved Patient had tachycardia, he developed leukocytosis of 16.4 on 07/18 with increased sedimentation rate of 28 MRI showed possible discitis at L1-L2 I talked to Dr. Rivera, she recommended CT-guided biopsy of L1-L2 and DC antibiotics CT guided biopsy planned on Wednesday Possible discitis Patient denied any infectious process recently No obvious source of infection Sedimentation rate of 28 Pain management COPD Oxygen dependent on 2 L Continue inhalers Hyperlipidemia Continue statin Chronic back pain Secondary to arthritic changes Lower extremity weakness Most likely secondary to disc bulging in the lumbar area vs possible discitis VS,Lizzie, I+O VS, Lizzie, I+O Laboratory Tests 07/20/20 06:30 Vital Signs Date Time Temp Pulse Resp B/P (MAP) Pulse Ox O2 Delivery O2 Flow Rate FiO2 07/20/20 06:57 16 07/20/20 06:00 98.3 96 112/63 (79) 94 Nasal Cannula 2.0 l I&O- Last 24 Hours up to 6 AM 07/20/20 06:00 Intake Total 1130 ml Output Total 0 ml Balance 1130 ml MARIA LUISA KEARNS DO Jul 20, 2020 09:53
[2020-07-20 10:00] VITALS: BP 115/71
[2020-07-20] MEDS: ROSUVASTATIN 10 MG TAB (CRESTOR) PO SCH (17:04)
[2020-07-20] MEDS: guaiFENesin 200 MG TAB PO PRN (17:16)
[2020-07-20 18:00] VITALS: BP 123/75
[2020-07-20] MEDS: ACETAMINOPHEN TAB 650MG DOSE (2X325MG) PO PRN (20:19)
[2020-07-20 22:00] VITALS: BP 130/82
[2020-07-21 02:00] VITALS: BP 121/74
[2020-07-21] MEDS: IPRATROPIUM 0.5MG/ALBUTEROL 2.5MG INH SOL UD 3ML (DUONEB) INH PRN ×6 (03:26→23:19)
[2020-07-21 06:00] VITALS: BP 128/75
[2020-07-21 07:07] LABS: BASO # 0.1 10^3/uL (0.0-0.2); BASO % 0.6 % (0.0-1.0); EOS # 0.2 10^3/uL (0.0-0.5); EOS % 1.9 % (0.0-3.0); HEMATOCRIT 39.3 % (42.0-52.0); HEMOGLOBIN 12.5 g/dl (13.5-17.5); LYMPH # 1.7 10^3/uL (1.5-5.0); LYMPH % 20.9 % (24.0-44.0); MEAN CORPUSCULAR HEMOGLOBIN 30.3 pg (27.0-33.0); MEAN CORPUSCULAR HGB CONC 31.8 g/dl (32.0-36.5); MEAN CORPUSCULAR VOLUME 95.2 fl (80.0-96.0); MONO # 0.9 10^3/uL (0.0-0.8); MONO % 11.6 % (0.0-5.0); NEUTROPHILS # 5.2 10^3/uL (1.5-8.5); NEUTROPHILS % 64.8 % (36.0-66.0); PLATELET COUNT, AUTOMATED 239 10^3/uL (150-450); RED BLOOD COUNT 4.13 10^6/uL (4.30-6.10)
[2020-07-21] MEDS: SYMBICORT 160/4.5MCG INHALER 6GM INH SCH ×2 (07:16→20:25)
[2020-07-21] MEDS: TIOTROPIUM INHALER/CAPSULE (SPIRIVA) INH SCH (07:17)
[2020-07-21 07:39] LABS: ALBUMIN 3.3 GM/DL (3.2-5.2); ALT/SGPT 31 U/L (12-78); BILIRUBIN,TOTAL 0.2 MG/DL (0.2-1.0); BLOOD UREA NITROGEN 12 MG/DL (7-18); CALCIUM LEVEL 8.7 MG/DL (8.8-10.2); CARBON DIOXIDE LEVEL 29 MEQ/L (21-32); CHLORIDE LEVEL 108 MEQ/L (98-107); CREATININE FOR GFR 1.06 MG/DL (0.70-1.30); GLOMERULAR FILTRATION RATE > 60.0 (>49); GLUCOSE, FASTING 101 MG/DL (70-100); MAGNESIUM LEVEL 2.1 MG/DL (1.8-2.4); POTASSIUM SERUM 4.2 MEQ/L (3.5-5.1); SODIUM LEVEL 141 MEQ/L (136-145); TOTAL PROTEIN 6.5 GM/DL (6.4-8.2)
[2020-07-21] MEDS: CYCLOBENZAPRINE 10MG TABLET PO PRN ×2 (07:54→18:45)
[2020-07-21] MEDS: FERROUS GLUCONATE 324 MG TAB PO SCH ×2 (07:54→18:46)
[2020-07-21] MEDS: busPIRone 5 MG TAB PO PRN ×3 (07:54→21:51)
[2020-07-21] MEDS: guaiFENesin 200 MG TAB PO PRN ×2 (07:54→18:46)
[2020-07-21] MEDS: traMADol 50 MG TAB PO PRN ×2 (07:55→18:45)
[2020-07-21] MEDS: MULTIVITAMINS/MINERALS THERAP 1 TAB PO SCH ×2 (07:55→18:46)
[2020-07-21] MEDS: ROFLUMILAST 500 MCG PO SCH (07:55)
[2020-07-21 10:00] VITALS: BP 122/76
--- NOTE | 2020-07-21 10:24 | IPNPDOC ---
Text Note Date of Service The patient was seen on 07/21/20. NOTE Subjective: No any acute events overnight. Patient states that his back pain significantly subsided. Objective: GENERAL APPEARANCE: NAD HEENT: no scleral icterus, no JVD, EOMI CARDIOVASCULAR: S1S2 LUNGS: CTA ABDOMEN: soft & not tender w palpitation MUSCULOSKELETAL: Mild Tenderness over L1-L2, L4-L5 INTEGUMENT: no generalized palor NEUROLOGICAL: cranial nerve function from 2-12 intact intact, follows commands, speech not dysarthric Assessment and plan Patient is a 69-year-old with a history of COPD, O2-dependent respiratory failure, pre-DM, DLP,, and chronic back pain who presented with complaints of feeling weak and dizzy; MRI of the lumbar spine showed possible discitis. Sepsis resolved Patient had tachycardia, he developed leukocytosis of 16.4 on 07/18 with increased sedimentation rate of 28 MRI showed possible discitis at L1-L2 I talked to Dr. Rivera, she recommended CT-guided biopsy of L1-L2 and DC antibiotics CT guided biopsy planned on Wednesday procalcitonin negative Possible discitis Patient denied any infectious process recently No obvious source of infection Sedimentation rate of 28 Pain management COPD Oxygen dependent on 2 L Continue inhalers Hyperlipidemia Continue statin VS,Fishbone, I+O VS, Fishbone, I+O Laboratory Tests 07/21/20 06:54 Vital Signs Date Time Temp Pulse Resp B/P (MAP) Pulse Ox O2 Delivery O2 Flow Rate FiO2 07/21/20 10:00 97.7 105 20 122/76 (91) 97 Nasal Cannula 2.0 I&O- Last 24 Hours up to 6 AM 07/21/20 05:59 Intake Total 1440 ml Output Total 0 ml Balance 1440 ml MARIA LUISA KEARNS DO Jul 21, 2020 10:24
[2020-07-21 14:00] VITALS: BP 124/75
[2020-07-21] MEDS: ACETAMINOPHEN TAB 650MG DOSE (2X325MG) PO PRN (14:14)
[2020-07-21 18:00] VITALS: BP 128/76
[2020-07-21] MEDS: ROSUVASTATIN 10 MG TAB (CRESTOR) PO SCH (18:46)
[2020-07-21 22:00] VITALS: BP 144/82
[2020-07-22] MEDS: IPRATROPIUM 0.5MG/ALBUTEROL 2.5MG INH SOL UD 3ML (DUONEB) INH PRN ×2 (04:15→07:25)
[2020-07-22] MEDS: busPIRone 5 MG TAB PO PRN (04:32)
[2020-07-22 06:00] VITALS: BP 133/72
[2020-07-22 06:53] LABS: BASO % 0.5 % (0.0-1.0); EOS # 0.1 10^3/uL (0.0-0.5); EOS % 1.6 % (0.0-3.0); HEMATOCRIT 38.7 % (42.0-52.0); HEMOGLOBIN 12.2 g/dl (13.5-17.5); LYMPH # 1.7 10^3/uL (1.5-5.0); LYMPH % 22.4 % (24.0-44.0); MEAN CORPUSCULAR HEMOGLOBIN 29.8 pg (27.0-33.0); MEAN CORPUSCULAR HGB CONC 31.5 g/dl (32.0-36.5); MEAN CORPUSCULAR VOLUME 94.4 fl (80.0-96.0); MONO # 0.8 10^3/uL (0.0-0.8); MONO % 10.3 % (0.0-5.0); NEUTROPHILS # 4.8 10^3/uL (1.5-8.5); NEUTROPHILS % 64.8 % (36.0-66.0); PLATELET COUNT, AUTOMATED 247 10^3/uL (150-450); WHITE BLOOD COUNT 7.4 10^3/uL (4.0-10.0)
[2020-07-22 07:19] LABS: ALBUMIN 3.5 GM/DL (3.2-5.2); ALT/SGPT 37 U/L (12-78); BILIRUBIN,TOTAL 0.3 MG/DL (0.2-1.0); BLOOD UREA NITROGEN 14 MG/DL (7-18); CALCIUM LEVEL 8.7 MG/DL (8.8-10.2); CARBON DIOXIDE LEVEL 28 MEQ/L (21-32); CHLORIDE LEVEL 107 MEQ/L (98-107); CREATININE FOR GFR 1.08 MG/DL (0.70-1.30); GLOMERULAR FILTRATION RATE > 60.0 (>49); GLUCOSE, FASTING 104 MG/DL (70-100); MAGNESIUM LEVEL 1.9 MG/DL (1.8-2.4); SODIUM LEVEL 139 MEQ/L (136-145); TOTAL PROTEIN 6.8 GM/DL (6.4-8.2)
[2020-07-22] MEDS: SYMBICORT 160/4.5MCG INHALER 6GM INH SCH (07:25)
[2020-07-22] MEDS: TIOTROPIUM INHALER/CAPSULE (SPIRIVA) INH SCH (07:25)
[2020-07-22] MEDS: MULTIVITAMINS/MINERALS THERAP 1 TAB PO SCH (08:33)
[2020-07-22] MEDS: ROFLUMILAST 500 MCG PO SCH (08:33)
[2020-07-22] MEDS: traMADol 50 MG TAB PO PRN (08:33)
[2020-07-22] MEDS: CYCLOBENZAPRINE 10MG TABLET PO PRN (08:33)
[2020-07-22] MEDS: FERROUS GLUCONATE 324 MG TAB PO SCH (08:33)
[2020-07-22] MEDS: guaiFENesin 200 MG TAB PO PRN (10:42)
--- NOTE | 2020-07-22 11:24 | DS.PDOC ---
Discharge Summary General Date of Admission Jul 17, 2020 at 22:56 Date of Discharge 07/22/20 Discharge Summary PROCEDURES PERFORMED DURING STAY: [None]. ADMITTING DIAGNOSES: COPD Sepsis Possible discitis Hyperlipidemia Chronic Back pain Lower extremity weakness DISCHARGE DIAGNOSES: COPD Sepsis rule out Possible discitis rule out Hyperlipidemia Chronic Back pain Lower extremity weakness COMPLICATIONS/CHIEF COMPLAINT: Diskitis. HISTORY OF PRESENT ILLNESS: This 69 year old gentleman presented with complaints of feeling dizzy and weak since about 12 noon. He has also been nauseous, but denied vomiting, having diarrhea, fevers or chills. He added that he has a history of chronic back pain over the last 3 weeks he has developed bilateral lower extremity paresthesia, which is worse at the right lo wer extremity and spasms of the legs that make it difficult for him to walk. He has not fallen, denies having fecal or urinary incontinence and denies having any acute changes in the symptoms over the last few days. He has seen his primary care provider at the [place] to discuss these symptoms; he has been referred to a chiropractor and physical therapist who he will see in the near future HOSPITAL COURSE: During hospital stay following issue addressed Sepsis Rule out Patient had tachycardia, he developed leukocytosis of 16.4 on 07/18 with increased sedimentation rate of 28. Most likely leukocytosis was reactive. MRI showed possible discitis at L1-L2 I talked to Dr. Rivera, she recommended CT-guided biopsy of L1-L2 and DC antibiotics After second review of MRI by a radiologist today the diagnosis of discitis was ruled out. Most likely changes due to arthritis procalcitonin negative Possible discitis Patient denied any infectious process recently No obvious source of infection Sedimentation rate of 28 Pain management See above COPD Oxygen dependent on 2 L Continue inhalers Hyperlipidemia Continue statin Chronic back pain Secondary to arthritic changes Lower extremity weakness Most likely secondary to disc bulging in the lumbar area DISCHARGE MEDICATIONS: Please see below. ALLERGIES: Please see below. PHYSICAL EXAMINATION ON DISCHARGE: VITAL SIGNS: Please see below. GENERAL APPEARANCE: NAD HEENT: no scleral icterus, no JVD, EOMI CARDIOVASCULAR: S1S2 LUNGS: CTA ABDOMEN: soft & not tender w palpitation MUSCULOSKELETAL: Mild Tenderness over L1-L2, L4-L5 INTEGUMENT: no generalized palor NEUROLOGICAL: cranial nerve function from 2-12 intact intact, follows commands, speech not dysarthric LABORATORY DATA: Please see below. IMAGING: [facility] NAME: ANDREINA PRATT DATE OF : 1950 BUSINESS NUMBER: [id number] AGE: 69 SEX: M REPORT #: [id number] ROOM: ED TECHNOLOGIST: JIMMIE DOCTOR: Adrian Vazquez M.D. Ordered for Date&Time: 07/17/201724 cc: [~ rep ct ivnm] Service Date&Time: 07/17/202101 This report is in Signed status. Interpretation performed by [facility]. Thank you for having your radiology procedures performed at [facility] RADIOLOGY REPORT Date&Time printed: [~ rep prt dt last] [~ rep prt tm last] Page 2 of 2 [place] [id number] RADIOLOGY REPORT This report is in Signed status. Interpretation performed by [facility]. Thank you for having your radiology procedures performed at [facility] RADIOLOGY REPORT Date&Time printed: [~ rep prt dt last] [~ rep prt tm last] Page 1 of 1 Exam: MR Lumbar Spine Without and With Contrast. Exam date and time: 07/17/2020 9:02 PM Age: 69 years old Clinical indication: Pain; Other: ? Discitis TECHNIQUE: Imaging protocol: Multiplanar magnetic resonance images of the lumbar spine without and with intravenous contrast. Contrast material: PROHANCE; Contrast volume: 14 ml; Contrast route: INTRAVENOUS (IV); COMPARISON: No relevant prior studies available. FINDINGS: Vertebrae: T1 weighted images demonstrate mottled decreased signal throughout the vertebrae, findings which can be seen in association with chronic anemia or other myeloproliferative abnormality. This should be correlated with clinical evaluation. Spinal cord: Normal signal. No cord compression. L1-L2: Disc space narrowing at L1-L2 with slight increased signal demonstrated on T1 weighted images, disc desiccation with decreased signal on T2 weighted imaging and minimal enhancement on post gadolinium imaging. Findings are consistent with but not diagnostic of discitis. L2-L3: No significant disc disease. No significant spinal canal stenosis. No neural foraminal stenosis. L3-L4: Mild annular bulge at L3-L4 without central or lateral spinal stenosis. L4-L5: Bilateral facet joint arthropathy at L4-L5. No central or lateral spinal stenosis. L5-S1: Posterior annular bulging. Bilateral facet joint arthropathy L5-S1 without central or lateral spinal stenosis. Soft tissues: Unremarkable. IMPRESSION: 1. T1 weighted images demonstrate mottled decreased signal throughout the vertebrae, findings which can be seen in association with chronic anemia or other myeloproliferative abnormality. This should be correlated with clinical evaluation. 2. Possible discitis at L1-L2 as described above. 3. Mild degenerative changes as described above. Electronically signed by: Librado Valle On 07/17/2020 21:12:21 PM DD: LIBRADO VALLE MD 07/17/202101 DT: MIKO 07/17/202111 DS: BARNEY 07/17/202111 [~ rep ct labl] PROGNOSIS: fair ACTIVITY: [As tolerated]. DIET: regular DISPOSITION: home ITEMS TO FOLLOWUP ON ON OUTPATIENT: Follow-up with PCP, continue physical therapy DISCHARGE CONDITION: [Stable]. TIME SPENT ON DISCHARGE: Greater than 30 minutes. Vital Signs/I&Os Vital Signs Date Time Temp Pulse Resp B/P (MAP) Pulse Ox O2 Delivery O2 Flow Rate FiO2 07/22/20 09:03 16 07/22/20 08:00 2.0 07/22/20 06:00 98.4 92 133/72 (92) 96 Nasal Cannula I&O- Last 24 Hours up to 6 AM 07/22/20 06:00 Intake Total 2320 ml Output Total 0 ml Balance 2320 ml Laboratory Data Labs 24H Laboratory Tests 2 07/22/20 06:41: Immature Granulocyte % (Auto) 0.4, Neutrophils (%) (Auto) 64.8, Lymphocytes (%) (Auto) 22.4L, Monocytes (%) (Auto) 10.3H, Eosinophils (%) (Auto) 1.6, Basophils (%) (Auto) 0.5, Neutrophils # (Auto) 4.8, Lymphocytes # (Auto) 1.7, Monocytes # (Auto) 0.8, Eosinophils # (Auto) 0.1, Basophils # (Auto) 0.0, Nucleated Red Blood Cells % (auto) 0.0, Anion Gap 4L, Glomerular Filtration Rate > 60.0, Calcium Level 8.7L, Magnesium Level 1.9, Total Bilirubin 0.3, Aspartate Amino Transf (AST/SGOT) 24, Alanine Aminotransferase (ALT/SGPT) 37, Alkaline Phosphatase 64, Total Protein 6.8, Albumin 3.5, Albumin/Globulin Ratio 1.1 CBC/BMP Laboratory Tests 07/22/20 06:41 Microbiology Microbiology 07/18/20 Blood Culture - Preliminary, Resulted No Growth after 72 hours. All specime... 07/18/20 Blood Culture - Preliminary, Resulted No Growth after 72 hours. All specime... 07/18/20 Blood Culture - Preliminary, Resulted No Growth after 72 hours. All specime... Discharge Medications Scheduled Budesonide/Formoterol (Symbicort 160-4.5 Mcg Inhaler) 6 Gm Hfa.aer.ad, 2 PUFF INH BID, (Reported) Ferrous Gluconate (Ferrous Gluconate) 324 Mg Tablet, 324 MG PO BIDWM, (Reported) Multivitamins (Thera M Plus Tablet) 1 Each Tablet, 1 TAB PO BIDWM, (Reported) Roflumilast (Daliresp) 500 Mcg Tablet, 500 MCG PO DAILY, (Reported) Rosuvastatin Calcium (Rosuvastatin Calcium) 40 Mg Tablet, 40 MG PO QPM, (Reported) TAKES BEFORE DINNER Tiotropium [place] (Spiriva Respimat) 4 Gm Mist.inhal, 2 PUFFS INH DAILY, (Reported) TAKES AT NOON Scheduled PRN Albuterol Sulfate (Proair Hfa) 8.5 Gm Hfa.aer.ad, 2 PUFF INH Q4H PRN for SHORTNESS OF BREATH, (Reported) Buspirone HCl (Buspirone HCl) 5 Mg Tablet, 5 MG PO TID PRN for ANXIETY, (Reported) Cyclobenzaprine HCl (Cyclobenzaprine HCl) 10 Mg Tablet, 10 MG PO BID PRN for MUSCLE SPASMS, (Reported) Fluocinolone Acetonide (Fluocinolone Acetonide) 60 Gm Oint...g., 1 DOSE EXT QHS PRN for RASH/ITCHING, (Reported) Guaifenesin (Guaifenesin) 400 Mg Tablet, 400 MG PO Q6H PRN for CONGESTION, (Reported) Ipratropium/Albuterol Sulfate (Iprat-Albut 0.5-3(2.5) mg/3 ml) 3 Ml Ampul.neb, 3 ML INH Q4H PRN for SHORTNESS OF BREATH, (Reported) Tramadol HCl (Tramadol HCl) 50 Mg Tablet, 50 MG PO BID PRN for PAIN, (Reported) Allergies Coded Allergies: No Known Allergies (Unverified , 07/17/20) MARIA LUISA KEARNS DO Jul 22, 2020 11:24
== END 2020-07-22 11:35 | disposition home or self-care (01) | DRG 552 ==
LOC: M ED 15:19 → M ED INP 22:56 → ENRESERV 07-18 01:30 → M MS5PR 07-18 02:00
PROVIDERS: ADMIT Internal Medicine; ATTEND Internal Medicine
DX: M51.36 Other intervertebral disc degeneration, lumbar region (principal); J96.10 Chronic respiratory failure, unspecified whether with hypoxia or hypercapnia; R53.1 Weakness; M51.26 Other intervertebral disc displacement, lumbar region; R42 Dizziness and giddiness; J44.9 Chronic obstructive pulmonary disease, unspecified; E78.5 Hyperlipidemia, unspecified; R73.03 Prediabetes; M54.9 Dorsalgia, unspecified; R53.81 Other malaise; Z87.891 Personal history of nicotine dependence; Z99.81 Dependence on supplemental oxygen; Z79.899 Other long term (current) drug therapy; Z20.828 Contact with and (suspected) exposure to other viral communicable diseases

== ENCOUNTER → 2020-09-04 | Outpatient (CLI) | payer SELFPAY ==
[~2020-09-04] MED LIST changes: +ACET-683 PO; +BUSP5TA PO; +CYCL-707 PO; +DALI1TAB2 PO; +FERR325T16 PO; +FERR32TA PO; +GUAI400T9 PO; +IPRA0.00 INH; +IPRA0.00 NEB; +MULTCAP PO; +PROAAER10 INH; +ROSU40TA4 PO; +SPIR12.9 INH; +TRAM50TA2 PO; +VITMTA PO; +[UNRECOGNIZED DRUG - CODE] EXT
== END ==
LOC: M LABSMTC 11:54
PROVIDERS: ATTEND Pediatrics
DX: Z20.822 Contact with and (suspected) exposure to COVID-19 (principal)